=== PATIENT | male | born 1980 | race Caucasian/White ===

== ENCOUNTER 2020-02-20 10:22 | Emergency (ER) | payer OTHER ==
[~2020-02-20] VITALS: Ht 177.8 cm; Wt 122.5 kg
[~2020-02-20 10:22] MED LIST: NORCO 5-325 TA1 EACH PO
[2020-02-20] MEDS ORDERED: LISINOPRIL10 MG PO (10:47)
[2020-02-20] MEDS ORDERED: ONDANSETRON ODT8 MG PO (12:46)
== END 2020-02-20 13:03 | disposition home or self-care (01) ==
LOC: ED 10:22
DX: B34.9 Viral infection, unspecified (principal); Z20.828 Contact with and (suspected) exposure to other viral communicable diseases; I10 Essential (primary) hypertension; Z79.899 Other long term (current) drug therapy
CPT/HCPCS: 80053; 85025; 96374; 96375; 99284-25; C9803; J1885; J2405; J7030; U0003

== ENCOUNTER 2021-08-05 07:13 | Emergency (ER) | payer OTHER ==
[~2021-08-05] VITALS: Ht 180.3 cm; Wt 128.8 kg
[~2021-08-05 07:13] MED LIST changes: +LISINOPRIL10 MG PO; +ONDANSETRON ODT8 MG PO
[2021-08-05] MEDS ORDERED: CYCLOBENZAPRINE10 MG PO (12:56)
[2021-08-05] MEDS ORDERED: HYDROCODON-ACE1 EA10 PO (12:56)
== END 2021-08-05 13:21 | disposition home or self-care (01) ==
LOC: ED 07:13
DX: R07.81 Pleurodynia (principal); I10 Essential (primary) hypertension; Z87.891 Personal history of nicotine dependence; Z79.899 Other long term (current) drug therapy
CPT/HCPCS: 36415; 71101; 80053; 81001; 83690; 85025; 96374; 96375; 99283-25; J1100; J1885

== ENCOUNTER 2021-11-22 08:29 | Emergency (ER) | payer OTHER ==
[~2021-11-22] VITALS: Ht 180.3 cm; Wt 128.8 kg
[~2021-11-22 08:29] MED LIST changes: +CYCLOBENZAPRINE10 MG PO; +HYDROCODON-ACE1 EA10 PO
[2021-11-22] MEDS ORDERED: DULOXETINE HCL30 MG PO (08:40)
[2021-11-22] MEDS ORDERED: LISINOPRIL-HCT1 EAC2 PO (08:41)
[2021-11-22] MEDS ORDERED: DICLOFENAC POTA25 MG PO (10:50)
[2021-11-22] MEDS ORDERED: CYCLOBENZAPRINE10 MG PO (10:50)
== END 2021-11-22 11:01 | disposition home or self-care (01) ==
LOC: ED 08:29
DX: N20.0 Calculus of kidney (principal); I10 Essential (primary) hypertension; Z87.891 Personal history of nicotine dependence; Z79.899 Other long term (current) drug therapy
CPT/HCPCS: 36415; 74176; 80053; 81001; 83690; 85025; 96374; 96375; 99284-25; J1885; J2405; J7030

== ENCOUNTER 2021-12-06 09:21 | Emergency (ER) | payer OTHER ==
[~2021-12-06] VITALS: Ht 180.3 cm; Wt 128.8 kg
[~2021-12-06 09:21] MED LIST changes: +DICLOFENAC POTA25 MG PO; +DULOXETINE HCL30 MG PO; +LISINOPRIL-HCT1 EAC2 PO
--- OUTSIDE RECORDS SUMMARY | 2021-12-06 09:24 | XMS ---
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 Gary VISIT COUNT (12 MO.) [address] [place] [address] TOTAL 3 NOTE: Visits indicate total known visits. ED/UCC VISIT TRACKING (12 MO.) 12/06/2021 09:[address] [facility] TYPE: Emergency COMPLAINT: - ABD PAIN,CHEST DISCOMFORT,LOSS OF VOICE 11/22/2021 08:30 [facility] TYPE: Emergency COMPLAINT: - R SIDE ABD TO R FLANK PAIN DIAGNOSES: - Personal history of nicotine dependence - Other halfway (current) drug therapy - Calculus of kidney - Essential (primary) hypertension - Unspecified abdominal pain 08/05/2021 07:16 [facility] TYPE: Emergency COMPLAINT: - R SIDE ABD PAIN DIAGNOSES: - Unspecified abdominal pain - Personal history of nicotine dependence - Other terminal computer operator (current) drug therapy - Essential (primary) hypertension - Pleurodynia INPATIENT VISIT TRACKING (12 MO.) No inpatient visits to display in this time frame [email or web address]
[2021-12-06] MEDS ORDERED: HYDROCODON-ACE1 EA10 PO (13:02)
[2021-12-06] MEDS ORDERED: PREDNISONE20 MG PO (13:02)
== END 2021-12-06 13:22 | disposition home or self-care (01) ==
LOC: ED 09:21
DX: S22.31XA Fracture of one rib, right side, initial encounter for closed fracture (principal); J45.909 Unspecified asthma, uncomplicated; I10 Essential (primary) hypertension; X58.XXXA Exposure to other specified factors, initial encounter; Z87.891 Personal history of nicotine dependence; Z79.899 Other long term (current) drug therapy
CPT/HCPCS: 71045; 71100; 94640; 94664; 99283-25; J7512

== ENCOUNTER 2023-12-16 14:47 | Emergency (ER) | payer OTHER ==
[~2023-12-16] VITALS: Ht 180.3 cm; Wt 133.9 kg
[~2023-12-16 14:47] MED LIST changes: +PREDNISONE20 MG PO
[2023-12-16] MEDS ORDERED: ATORVASTATIN CA20 MG PO (15:10)
[2023-12-16] MEDS ORDERED: MONTELUKAST SOD10 MG PO (15:11)
[2023-12-16] MEDS ORDERED: VITAMIN D21250 MCG PO (15:11)
[2023-12-16] MEDS ORDERED: METFORMIN HCL500 M1 PO (15:11)
[2023-12-16] MEDS ORDERED: OXYCODONE/APAP 5/325 TAB PO ONE (16:30)
[2023-12-16 18:05] VITALS: BP 137/101
== END 2023-12-16 18:05 | disposition home or self-care (01) ==
LOC: ED 14:47
DX: S02.2XXA Fracture of nasal bones, initial encounter for closed fracture (principal); S00.03XA Contusion of scalp, initial encounter; I10 Essential (primary) hypertension; Z87.891 Personal history of nicotine dependence; Z79.84 Long term (current) use of oral hypoglycemic drugs; Z79.899 Other long term (current) drug therapy; V68.5XXA Driver of heavy transport vehicle injured in noncollision transport accident in traffic accident, initial encounter
CPT/HCPCS: 12011; 70450; 70486; 71100; 99284-25